=== PATIENT | female | born 2000 | race African-American/Black ===

== ENCOUNTER 2023-11-07 20:32 | Emergency (ER) | payer SELFPAY ==
[2023-11-07 20:39] VITALS: BP 140/81; PULSE 105; RESP 18; TEMP 98.2; BMI 21.9
== END 2023-11-07 21:38 | disposition home or self-care (01) ==
LOC: JER 20:32
DX: K64.4 Residual hemorrhoidal skin tags (principal)
CPT/HCPCS: 99283-25